=== PATIENT | male | born 1995 | race Caucasian/White ===

== ENCOUNTER 2018-06-19 17:56 | Emergency (ER) | payer OTHER ==
[~2018-06-19] VITALS: Ht 185.4 cm; Wt 73.9 kg
[2018-06-19 18:01] VITALS: BP 125/73
[2018-06-19 19:20] VITALS: BP 119/85
== END 2018-06-19 19:20 | disposition home or self-care (01) ==
LOC: MED 17:56
DX: R07.89 Other chest pain (principal)
CPT/HCPCS: 71046; 93005; 99283